=== PATIENT | female | born 1940 | race Caucasian/White ===

== ENCOUNTER → 2020-04-06 | Outpatient (CLI) | payer MEDICARE, BC | END | disposition home or self-care (01) | LOC: CFH 06:43 | PROVIDERS: ATTEND Internal Medicine Cardiovascular Disease | DX: I08.2 Rheumatic disorders of both aortic and tricuspid valves (principal); Q24.9 Congenital malformation of heart, unspecified; I11.9 Hypertensive heart disease without heart failure | CPT/HCPCS: 78452; 93017; 93306; A9502 ==

== ENCOUNTER 2020-07-13 09:54 | Day surgery (SDC) | payer MEDICARE, BC ==
[~2020-07-13] VITALS: Ht 157.5 cm; Wt 68.2 kg
[~2020-07-13 09:54] MED LIST: PROPOFOL 10 MG/ML, 20ML ONE
[2020-07-13 10:25] VITALS: BP 144/79
[2020-07-13] MEDS ORDERED: SODIUM CHLORIDE 0.9% 1,000 ML IV ONE (10:30)
[2020-07-13] MEDS ORDERED: DESL5TAB40 PO (10:39)
[2020-07-13] MEDS ORDERED: ASPI81TA45 PO (10:39)
[2020-07-13] MEDS ORDERED: OMEP-110 PO (10:39)
[2020-07-13] MEDS ORDERED: METF500T17 PO (10:39)
[2020-07-13] MEDS ORDERED: LISI5TAB7 PO (10:39)
== END 2020-07-13 14:03 | disposition home or self-care (01) ==
LOC: CACL 09:54
PROVIDERS: ATTEND Internal Medicine Cardiovascular Disease
DX: Q24.9 Congenital malformation of heart, unspecified (principal); I10 Essential (primary) hypertension; E11.9 Type 2 diabetes mellitus without complications; K21.9 Gastro-esophageal reflux disease without esophagitis; Z20.822 Contact with and (suspected) exposure to COVID-19; Z79.84 Long term (current) use of oral hypoglycemic drugs; Z79.899 Other long term (current) drug therapy
CPT/HCPCS: 93312; 93321; 93325; J2704; U0003

== ENCOUNTER 2020-09-10 07:28 | Emergency (ER) | payer MEDICARE, BC ==
[~2020-09-10] VITALS: Ht 157.5 cm; Wt 68.9 kg
[~2020-09-10 07:28] MED LIST changes: +ASPI81TA45 PO; +DESL5TAB40 PO; +LISI5TAB7 PO; +METF500T17 PO; +OMEP-110 PO; -PROPOFOL 10 MG/ML, 20ML ONE
--- NOTE | 2020-09-10 08:02 | NUR ---
pt presents to ed with c/o r foot pain, states they misstepped on a step last night and feels it may be broken. slight swelling noted to r foot, cms intact. pt denies any other trauma. pt a&o, resps even and unlabored, [place]. jacqui Deras at bedside for eval. at bedside, call light in reach.
[2020-09-10 09:00] VITALS: BP 132/69
--- NOTE | 2020-09-10 09:03 | NUR ---
pt resting in bed, a&o, resps even and unlabored, vss, nadn. call light in reach, awaiting xr results and dispo.
--- NOTE | 2020-09-10 09:47 | NUR ---
pt educated on discharge instructions and follow-up, verbalized understanding. pt a&o, resps even and unlabred, vss, nadn. accompanied by to discharge, no complaints at time of dc.
== END 2020-09-10 09:49 | disposition home or self-care (01) ==
LOC: ED 07:59
DX: S93.621A Sprain of tarsometatarsal ligament of right foot, initial encounter (principal); W18.30XA Fall on same level, unspecified, initial encounter; Y93.89 Activity, other specified; Y92.69 Other specified industrial and construction area as the place of occurrence of the external cause; Y99.8 Other external cause status
CPT/HCPCS: 99283